=== PATIENT | female | born 1995 | race Caucasian/White ===

== ENCOUNTER 2017-06-06 16:08 | Emergency (ER) | payer SELFPAY ==
[~2017-06-06] VITALS: Ht 167.6 cm; Wt 65.0 kg
[2017-06-06 16:52] VITALS: BP 117/68
[2017-06-06] MEDS ORDERED: OLANZAPINE 10 MG/VIAL IM ONE (17:30)
[2017-06-06] MEDS ORDERED: LORAZEPAM 2MG/ML CPJ IM ONE (17:30)
[2017-06-06] MEDS ORDERED: DIPHENHYDRAMINE 50MG/ML VIAL IM ONE (17:30)
== END 2017-06-06 18:03 | disposition home or self-care (01) ==
LOC: ER 16:40
DX: R44.0 Auditory hallucinations (principal); R44.1 Visual hallucinations; K64.4 Residual hemorrhoidal skin tags
CPT/HCPCS: 99284

== ENCOUNTER 2017-07-10 22:49 | Emergency (ER) | payer MEDICAID ==
[~2017-07-10] VITALS: Ht 170.2 cm; Wt 68.0 kg
[2017-07-10] MEDS ORDERED: LORAZEPAM 2MG/ML CPJ IV ONE (23:45)
[2017-07-10] MEDS ORDERED: SODIUM CHLORIDE 0.9% 1,000 ML IV ONE (23:45)
[2017-07-11 00:07] LABS: BASOPHILS % 0.9 % (0.0-2.0); EOSINOPHILS % 1.1 % (0.0-5.0); HEMATOCRIT. 33.5 % (36.0-48.0); HEMOGLOBIN. 10.6 g/dL (12.0-16.0); LYMPHOCYTES % 30.9 % (20.0-50.0); MEAN CORPUSCULAR HEMOGLOBIN 23.3 pg (28.0-32.0); MEAN CORPUSCULAR VOLUME 73.3 fL (81.0-99.0); MEAN PLATELET VOLUME 8.3 fl (7.4-10.4); MONOCYTES % 7.5 % (2.0-8.0); NEUTROPHILS % 59.6 % (40.0-76.0); PLATELET 347 x1000/uL (130-400); RED BLOOD CELL COUNT 4.56 mill/uL (4.2-5.4); RED CELL DISTRIBUTION WIDTH 19.6 % (11.6-14.6)
[2017-07-11 00:18] LABS: CLARITY URINE CLOUDY (CLEAR); COLOR URINE YELLOW (YELLOW); GLUCOSE URINE NEGATIVE (NEGATIVE); KETONES URINE 1+ (NEGATIVE); LEUKOCYTE ESTERASE URINE 1+ (NEGATIVE); NITRITE URINE NEGATIVE (NEGATIVE); OCCULT BLOOD URINE NEGATIVE (NEGATIVE); PH URINE 5.5 (4.5-8.0); PROTEIN URINE NEGATIVE (NEGATIVE); UROBILINOGEN URINE 0.2 E.U./dL (0.2-1.0)
[2017-07-11 00:18] LABS: CHLORIDE 105 mEq/L (98-107)
[2017-07-11 00:23] LABS: CARBON DIOXIDE 22 mEq/L (21-32)
[2017-07-11 02:38] LABS: *BARBITURATES SCREEN URINE NEGATIVE (NEGATIVE); *BENZODIAZEPINES SCREEN URINE NEGATIVE (NEGATIVE); *COCAINE SCREEN URINE NEGATIVE (NEGATIVE); METHADONE URINE SCREEN NEGATIVE (NEGATIVE); OPIATES URINE SCREEN NEGATIVE (NEGATIVE); PHENCYCLIDINE URINE SCREEN NEGATIVE (NEGATIVE)
[2017-07-11 03:13] LABS: *AMPHETAMINES SCREEN URINE PRESUMTIVE POSITIVE (NEGATIVE); CANNABINOID URINE SCREEN PRESUMTIVE POSITIVE (NEGATIVE)
[2017-07-11 04:00] VITALS: BP 96/50
== END 2017-07-11 07:20 | disposition home or self-care (01) ==
LOC: ER 22:49
DX: F15.10 Other stimulant abuse, uncomplicated (principal); F19.10 Other psychoactive substance abuse, uncomplicated; F31.9 Bipolar disorder, unspecified
CPT/HCPCS: 36415; 80048; 80305; 81001; 81025; 85025; 96361; 96374; 99284; J2060; J7030; Z7610; 80307

== ENCOUNTER 2018-08-15 11:51 | Emergency (ER) | payer MEDICAID, MEDICARE ==
[~2018-08-15] VITALS: Ht 167.6 cm; Wt 81.9 kg
[2018-08-15] MEDS ORDERED: OLANZAPINE 10 MG/VIAL IM STA (12:12)
[2018-08-15 12:54] LABS: CLARITY URINE CLEAR (CLEAR); COLOR URINE YELLOW (YELLOW); KETONES URINE 1+ (NEGATIVE); LEUKOCYTE ESTERASE URINE TRACE (NEGATIVE); NITRITE URINE NEGATIVE (NEGATIVE); OCCULT BLOOD URINE 2+ (NEGATIVE); PH URINE 5.5 (4.5-8.0); PROTEIN URINE NEGATIVE (NEGATIVE); SPECIFIC GRAVITY URINE 1.025 (1.005-1.030); UROBILINOGEN URINE 0.2 E.U./dL (0.2-1.0)
[2018-08-15 12:57] LABS: EOSINOPHILS % 0.5 % (0.0-5.0); HEMATOCRIT. 38.8 % (36.0-48.0); HEMOGLOBIN. 13.4 g/dL (12.0-16.0); LYMPHOCYTES % 28.2 % (20.0-50.0); MEAN CORPUSCULAR VOLUME 89.9 fL (81.0-99.0); MEAN PLATELET VOLUME 8.2 fl (7.4-10.4); MONOCYTES % 6.7 % (2.0-8.0); NEUTROPHILS % 63.6 % (40.0-76.0); PLATELET 283 x1000/uL (130-400); RED BLOOD CELL COUNT 4.32 mill/uL (4.2-5.4); RED CELL DISTRIBUTION WIDTH 13.6 % (11.6-14.6)
[2018-08-15 13:06] LABS: CHLORIDE 108 mEq/L (98-107); ETHANOL BLOOD < 10 mg/dL
[2018-08-15 13:07] LABS: *BENZODIAZEPINES SCREEN URINE NEGATIVE (NEGATIVE); *COCAINE SCREEN URINE NEGATIVE (NEGATIVE); METHADONE URINE SCREEN NEGATIVE (NEGATIVE); OPIATES URINE SCREEN NEGATIVE (NEGATIVE)
[2018-08-15 13:08] LABS: *BARBITURATES SCREEN URINE NEGATIVE (NEGATIVE); PHENCYCLIDINE URINE SCREEN NEGATIVE (NEGATIVE)
[2018-08-15 13:09] LABS: HCG SCREEN NEGATIVE
[2018-08-15 13:12] LABS: *AMPHETAMINES SCREEN URINE PRESUMTIVE POSITIVE (NEGATIVE); CANNABINOID URINE SCREEN PRESUMTIVE POSITIVE (NEGATIVE)
[2018-08-16] MEDS ORDERED: TRAZODONE HCL 50MG TABLET PO STA (07:24)
[2018-08-16] MEDS ORDERED: ARIPIPRAZOLE 10MG TABLET PO ONE (07:30)
[2018-08-16 12:30] VITALS: BP 110/58
== END 2018-08-16 12:34 | disposition home or self-care (01) ==
LOC: ER 11:51
DX: F23 Brief psychotic disorder (principal); F31.9 Bipolar disorder, unspecified; F15.10 Other stimulant abuse, uncomplicated; F12.10 Cannabis abuse, uncomplicated; F16.10 Hallucinogen abuse, uncomplicated; R45.851 Suicidal ideations; F17.210 Nicotine dependence, cigarettes, uncomplicated; Z71.6 Tobacco abuse counseling; Z91.19 Patient's noncompliance with other medical treatment and regimen
CPT/HCPCS: 36415; 80053; 80305; 81003; 81025; 84703; 85025; 96372; 99284; 99406; G0482; J3490

== ENCOUNTER 2018-08-30 05:59 | Emergency (ER) | payer MEDICARE | END 2018-08-30 06:13 | disposition left against medical advice (07) | LOC: ER 05:59 | DX: Z53.21 Procedure and treatment not carried out due to patient leaving prior to being seen by health care provider (principal) ==

== ENCOUNTER 2018-09-17 01:13 | Emergency (ER) | payer MEDICARE ==
[~2018-09-17] VITALS: Ht 167.6 cm; Wt 68.0 kg
[2018-09-17 03:17] LABS: EOSINOPHILS % 0.8 % (0.0-5.0); HEMATOCRIT. 37.9 % (36.0-48.0); LYMPHOCYTES % 34.2 % (20.0-50.0); MEAN CORPUSCULAR HEMOGLOBIN 31.2 pg (28.0-32.0); MEAN CORPUSCULAR VOLUME 90.9 fL (81.0-99.0); MEAN PLATELET VOLUME 8.5 fl (7.4-10.4); MONOCYTES % 7.5 % (2.0-8.0); NEUTROPHILS % 56.5 % (40.0-76.0); PLATELET 294 x1000/uL (130-400); RED BLOOD CELL COUNT 4.17 mill/uL (4.2-5.4); RED CELL DISTRIBUTION WIDTH 13.4 % (11.6-14.6)
[2018-09-17 03:28] LABS: ETHANOL BLOOD < 10 mg/dL
[2018-09-17 03:34] LABS: CLARITY URINE CLOUDY (CLEAR); COLOR URINE YELLOW (YELLOW); KETONES URINE 1+ (NEGATIVE); LEUKOCYTE ESTERASE URINE NEGATIVE (NEGATIVE); NITRITE URINE NEGATIVE (NEGATIVE); OCCULT BLOOD URINE NEGATIVE (NEGATIVE); PROTEIN URINE NEGATIVE (NEGATIVE); SPECIFIC GRAVITY URINE 1.019 (1.005-1.030); UROBILINOGEN URINE 0.2 E.U./dL (0.2-1.0)
[2018-09-17 03:47] LABS: *BARBITURATES SCREEN URINE NEGATIVE (NEGATIVE); *BENZODIAZEPINES SCREEN URINE NEGATIVE (NEGATIVE)
[2018-09-17 03:48] LABS: *COCAINE SCREEN URINE NEGATIVE (NEGATIVE); CANNABINOID URINE SCREEN NEGATIVE (NEGATIVE); METHADONE URINE SCREEN NEGATIVE (NEGATIVE); OPIATES URINE SCREEN NEGATIVE (NEGATIVE); PHENCYCLIDINE URINE SCREEN NEGATIVE (NEGATIVE)
[2018-09-17 03:54] LABS: *AMPHETAMINES SCREEN URINE PRESUMTIVE POSITIVE (NEGATIVE)
[2018-09-17] MEDS ORDERED: HALOPERIDOL LACTATE 5MG/ML VIAL IM ONE (04:00)
[2018-09-17] MEDS ORDERED: LORAZEPAM 2MG/ML CPJ IM ONE (04:00)
[2018-09-17 04:04] LABS: CHLORIDE 106 mEq/L (98-107)
[2018-09-17 10:40] VITALS: BP 135/64
== END 2018-09-17 11:07 | disposition home or self-care (01) ==
LOC: ER 01:47
DX: R45.1 Restlessness and agitation (principal); F31.9 Bipolar disorder, unspecified; F20.9 Schizophrenia, unspecified; F17.200 Nicotine dependence, unspecified, uncomplicated; F15.10 Other stimulant abuse, uncomplicated
CPT/HCPCS: 36415; 80053; 80305; 80307; 80329; 81003; 85025; 96372; 99283; G0482; J1630; J2060

== ENCOUNTER 2018-09-21 18:15 | Emergency (ER) | payer MEDICARE ==
[~2018-09-21] VITALS: Ht 160 cm; Wt 56.0 kg
[2018-09-22] MEDS ORDERED: HALOPERIDOL LACTATE 5MG/ML VIAL IM STA (00:11)
[2018-09-22] MEDS ORDERED: LORAZEPAM 2MG/ML CPJ IM STA (00:11)
[2018-09-22 01:08] LABS: CLARITY URINE CLEAR (CLEAR); COLOR URINE DARK YELLOW (YELLOW); KETONES URINE 2+ (NEGATIVE); LEUKOCYTE ESTERASE URINE NEGATIVE (NEGATIVE); NITRITE URINE NEGATIVE (NEGATIVE); OCCULT BLOOD URINE NEGATIVE (NEGATIVE); PROTEIN URINE TRACE (NEGATIVE); SPECIFIC GRAVITY URINE 1.029 (1.005-1.030); UROBILINOGEN URINE 0.2 E.U./dL (0.2-1.0)
[2018-09-22 01:37] LABS: *BARBITURATES SCREEN URINE NEGATIVE (NEGATIVE); *BENZODIAZEPINES SCREEN URINE NEGATIVE (NEGATIVE)
[2018-09-22 01:38] LABS: *COCAINE SCREEN URINE NEGATIVE (NEGATIVE); CANNABINOID URINE SCREEN NEGATIVE (NEGATIVE); METHADONE URINE SCREEN NEGATIVE (NEGATIVE); OPIATES URINE SCREEN NEGATIVE (NEGATIVE); PHENCYCLIDINE URINE SCREEN NEGATIVE (NEGATIVE)
[2018-09-22 01:41] LABS: *AMPHETAMINES SCREEN URINE PRESUMTIVE POSITIVE (NEGATIVE)
[2018-09-22 01:50] LABS: BASOPHILS % 0.7 % (0.0-2.0); EOSINOPHILS % 1.2 % (0.0-5.0); HEMATOCRIT. 37.1 % (36.0-48.0); LYMPHOCYTES % 37.8 % (20.0-50.0); MEAN CORPUSCULAR VOLUME 88.8 fL (81.0-99.0); MEAN PLATELET VOLUME 8.4 fl (7.4-10.4); MONOCYTES % 9.9 % (2.0-8.0); NEUTROPHILS % 50.4 % (40.0-76.0); PLATELET 280 x1000/uL (130-400); RED BLOOD CELL COUNT 4.18 mill/uL (4.2-5.4); RED CELL DISTRIBUTION WIDTH 13.4 % (11.6-14.6)
[2018-09-22 01:58] LABS: CHLORIDE 105 mEq/L (98-107)
[2018-09-22 02:05] LABS: ETHANOL BLOOD < 10 mg/dL
[2018-09-22 12:54] VITALS: BP 114/57
== END 2018-09-22 13:15 | disposition home or self-care (01) ==
LOC: ER 18:15
DX: F15.10 Other stimulant abuse, uncomplicated (principal); F20.9 Schizophrenia, unspecified; F31.9 Bipolar disorder, unspecified
CPT/HCPCS: 36415; 80053; 80305; 80307; 80329; 81003; 81025; 85025; 96372; 99283; G0482; J1630; J2060

== ENCOUNTER 2018-10-21 23:07 | Emergency (ER) | payer MEDICARE ==
[~2018-10-21] VITALS: Ht 165.1 cm; Wt 54.0 kg
[2018-10-21] MEDS ORDERED: SODIUM CHLORIDE 0.9% 1,000 ML IV ONE (23:23)
[2018-10-21] MEDS ORDERED: LORAZEPAM 2MG/ML CPJ IV ONE (23:30)
[2018-10-21 23:42] LABS: BASOPHILS % 0.6 % (0.0-2.0); EOSINOPHILS % 0.7 % (0.0-5.0); HEMATOCRIT. 40.7 % (36.0-48.0); HEMOGLOBIN. 13.8 g/dL (12.0-16.0); MEAN CORPUSCULAR HEMOGLOBIN 30.8 pg (28.0-32.0); MEAN CORPUSCULAR VOLUME 90.9 fL (81.0-99.0); MEAN PLATELET VOLUME 7.9 fl (7.4-10.4); MONOCYTES % 8.5 % (2.0-8.0); NEUTROPHILS % 59.2 % (40.0-76.0); PLATELET 346 x1000/uL (130-400); RED BLOOD CELL COUNT 4.48 mill/uL (4.2-5.4); RED CELL DISTRIBUTION WIDTH 13.5 % (11.6-14.6)
[2018-10-21 23:50] LABS: CHLORIDE 105 mEq/L (98-107)
[2018-10-21 23:54] LABS: HCG SCREEN NEGATIVE
[2018-10-21 23:56] LABS: ETHANOL BLOOD < 10 mg/dL
[2018-10-22] MEDS ORDERED: LORAZEPAM 2MG/ML CPJ IV ONE (00:15)
[2018-10-22 00:22] LABS: CLARITY URINE CLOUDY (CLEAR); COLOR URINE YELLOW (YELLOW); KETONES URINE NEGATIVE (NEGATIVE); LEUKOCYTE ESTERASE URINE NEGATIVE (NEGATIVE); NITRITE URINE NEGATIVE (NEGATIVE); OCCULT BLOOD URINE NEGATIVE (NEGATIVE); PH URINE 6.5 (4.5-8.0); PROTEIN URINE NEGATIVE (NEGATIVE); SPECIFIC GRAVITY URINE 1.021 (1.005-1.030); UROBILINOGEN URINE 0.2 E.U./dL (0.2-1.0)
[2018-10-22 00:31] LABS: *BARBITURATES SCREEN URINE NEGATIVE (NEGATIVE); *BENZODIAZEPINES SCREEN URINE NEGATIVE (NEGATIVE)
[2018-10-22 00:32] LABS: *COCAINE SCREEN URINE NEGATIVE (NEGATIVE); CANNABINOID URINE SCREEN NEGATIVE (NEGATIVE); METHADONE URINE SCREEN NEGATIVE (NEGATIVE); OPIATES URINE SCREEN NEGATIVE (NEGATIVE); PHENCYCLIDINE URINE SCREEN NEGATIVE (NEGATIVE)
[2018-10-22 00:33] LABS: *AMPHETAMINES SCREEN URINE PRESUMTIVE POSITIVE (NEGATIVE)
[2018-10-22] MEDS ORDERED: SODIUM CHLORIDE 0.9% 1,000 ML IV ONE (03:57)
[2018-10-22 14:46] VITALS: BP 118/75
== END 2018-10-22 14:49 | disposition home or self-care (01) ==
LOC: EDUNIT# 23:07 → ER 23:07 → EDBD 23:07 → ER 10-22 14:49
DX: T43.621A Poisoning by amphetamines, accidental (unintentional), initial encounter (principal); G93.1 Anoxic brain damage, not elsewhere classified; Y92.89 Other specified places as the place of occurrence of the external cause
CPT/HCPCS: 36415; 70450; 80053; 80305; 80307; 80329; 81003; 81025; 84703; 85025; 96361; 96374; 96376; 99284; G0482; J2060; J7030; A4315

== ENCOUNTER 2018-10-24 12:32 | Emergency (ER) | payer MEDICARE ==
[~2018-10-24] VITALS: Ht 165.1 cm; Wt 65.0 kg
[2018-10-24 14:46] LABS: CLARITY URINE CLOUDY (CLEAR); COLOR URINE YELLOW (YELLOW); KETONES URINE TRACE (NEGATIVE); LEUKOCYTE ESTERASE URINE 1+ (NEGATIVE); NITRITE URINE POSITIVE (NEGATIVE); OCCULT BLOOD URINE 2+ (NEGATIVE); PROTEIN URINE NEGATIVE (NEGATIVE); SPECIFIC GRAVITY URINE 1.027 (1.005-1.030); UROBILINOGEN URINE 0.2 E.U./dL (0.2-1.0)
[2018-10-24] MEDS ORDERED: CEFTRIAXONE 1 G PREMIX 50 ML IV NR (15:22)
[2018-10-24] MEDS ORDERED: SULFAMETHOXAZOLE/TRIMETHOPRIM 800/160MG TABLET PO ONE (15:30)
[2018-10-24] MEDS ORDERED: ZIPRASIDONE MESYLATE 20MG/VIAL IM ONE (15:30)
[2018-10-24] MEDS ORDERED: LORAZEPAM 2MG/ML CPJ IM ONE (15:30)
[2018-10-24] MEDS ORDERED: DIPHENHYDRAMINE 50MG/ML VIAL IM ONE (15:30)
[2018-10-24 15:31] LABS: *BARBITURATES SCREEN URINE NEGATIVE (NEGATIVE)
[2018-10-24 15:32] LABS: BASOPHILS % 0.5 % (0.0-2.0); EOSINOPHILS % 0.4 % (0.0-5.0); HEMOGLOBIN. 12.6 g/dL (12.0-16.0); LYMPHOCYTES % 28.3 % (20.0-50.0); MEAN CORPUSCULAR HEMOGLOBIN 30.8 pg (28.0-32.0); MEAN CORPUSCULAR VOLUME 90.5 fL (81.0-99.0); MEAN PLATELET VOLUME 8.1 fl (7.4-10.4); NEUTROPHILS % 60.8 % (40.0-76.0); PLATELET 347 x1000/uL (130-400); RED BLOOD CELL COUNT 4.09 mill/uL (4.2-5.4); RED CELL DISTRIBUTION WIDTH 13.4 % (11.6-14.6)
[2018-10-24 15:32] LABS: *BENZODIAZEPINES SCREEN URINE NEGATIVE (NEGATIVE); *COCAINE SCREEN URINE NEGATIVE (NEGATIVE); METHADONE URINE SCREEN NEGATIVE (NEGATIVE)
[2018-10-24 15:33] LABS: OPIATES URINE SCREEN NEGATIVE (NEGATIVE); PHENCYCLIDINE URINE SCREEN NEGATIVE (NEGATIVE)
[2018-10-24 15:35] LABS: CHLORIDE 112 mEq/L (98-107)
[2018-10-24 15:35] LABS: *AMPHETAMINES SCREEN URINE PRESUMTIVE POSITIVE (NEGATIVE); CANNABINOID URINE SCREEN PRESUMTIVE POSITIVE (NEGATIVE)
[2018-10-24 15:39] LABS: ETHANOL BLOOD < 10 mg/dL
[2018-10-24 15:47] LABS: HCG SCREEN NEGATIVE
[2018-10-25 08:30] VITALS: BP 112/54
== END 2018-10-25 08:52 | disposition home or self-care (01) ==
LOC: ER 12:32
DX: F19.10 Other psychoactive substance abuse, uncomplicated (principal); F29 Unspecified psychosis not due to a substance or known physiological condition; F15.10 Other stimulant abuse, uncomplicated
CPT/HCPCS: 36415; 80053; 80305; 80307; 80329; 81003; 81025; 84703; 85025; 93005; 96372; 99284; G0482; J1200; J2060; J3486

== ENCOUNTER 2018-11-03 20:22 | Emergency (ER) | payer MEDICARE ==
[~2018-11-03] VITALS: Ht 160 cm; Wt 59.1 kg
[2018-11-03 23:28] LABS: CLARITY URINE CLEAR (CLEAR); COLOR URINE YELLOW (YELLOW); KETONES URINE TRACE (NEGATIVE); LEUKOCYTE ESTERASE URINE NEGATIVE (NEGATIVE); NITRITE URINE NEGATIVE (NEGATIVE); OCCULT BLOOD URINE NEGATIVE (NEGATIVE); PROTEIN URINE NEGATIVE (NEGATIVE); SPECIFIC GRAVITY URINE 1.025 (1.005-1.030); UROBILINOGEN URINE 0.2 E.U./dL (0.2-1.0)
[2018-11-03 23:33] LABS: BASOPHILS % 0.7 % (0.0-2.0); EOSINOPHILS % 1.1 % (0.0-5.0); HEMATOCRIT. 36.2 % (36.0-48.0); HEMOGLOBIN. 12.2 g/dL (12.0-16.0); LYMPHOCYTES % 39.9 % (20.0-50.0); MEAN CORPUSCULAR HEMOGLOBIN 30.8 pg (28.0-32.0); MEAN CORPUSCULAR VOLUME 90.9 fL (81.0-99.0); MEAN PLATELET VOLUME 8.2 fl (7.4-10.4); NEUTROPHILS % 48.3 % (40.0-76.0); PLATELET 302 x1000/uL (130-400); RED BLOOD CELL COUNT 3.98 mill/uL (4.2-5.4); RED CELL DISTRIBUTION WIDTH 13.4 % (11.6-14.6)
[2018-11-03 23:42] LABS: CHLORIDE 108 mEq/L (98-107)
[2018-11-03 23:46] LABS: *BARBITURATES SCREEN URINE NEGATIVE (NEGATIVE); *COCAINE SCREEN URINE NEGATIVE (NEGATIVE); METHADONE URINE SCREEN NEGATIVE (NEGATIVE); OPIATES URINE SCREEN NEGATIVE (NEGATIVE); PHENCYCLIDINE URINE SCREEN NEGATIVE (NEGATIVE)
[2018-11-03 23:47] LABS: *AMPHETAMINES SCREEN URINE PRESUMTIVE POSITIVE (NEGATIVE); CANNABINOID URINE SCREEN PRESUMTIVE POSITIVE (NEGATIVE)
[2018-11-03 23:49] LABS: ETHANOL BLOOD < 10 mg/dL
[2018-11-03 23:57] LABS: *BENZODIAZEPINES SCREEN URINE PRESUMTIVE POSITIVE (NEGATIVE)
[2018-11-04 01:39] VITALS: BP 132/45
== END 2018-11-04 01:53 | disposition home or self-care (01) ==
LOC: ER 20:33
DX: F15.10 Other stimulant abuse, uncomplicated (principal); F12.10 Cannabis abuse, uncomplicated; F16.10 Hallucinogen abuse, uncomplicated; F20.9 Schizophrenia, unspecified; F17.200 Nicotine dependence, unspecified, uncomplicated; R45.6 Violent behavior
CPT/HCPCS: 36415; 80053; 80305; 81003; 81025; 85025; 99283; G0482

== ENCOUNTER 2018-12-02 03:30 | Emergency (ER) | payer MEDICARE ==
[~2018-12-02] VITALS: Ht 162.6 cm; Wt 68.0 kg
[2018-12-02] MEDS ORDERED: LORAZEPAM 1MG TABLET PO ONE (04:30)
[2018-12-02] MEDS ORDERED: LORAZEPAM 2MG/ML CPJ IM ONE (04:30)
[2018-12-02 04:40] LABS: BASOPHILS % 0.6 % (0.0-2.0); EOSINOPHILS % 0.6 % (0.0-5.0); HEMATOCRIT. 39.7 % (36.0-48.0); HEMOGLOBIN. 13.4 g/dL (12.0-16.0); LYMPHOCYTES % 24.6 % (20.0-50.0); MEAN CORPUSCULAR HEMOGLOBIN 30.7 pg (28.0-32.0); MEAN CORPUSCULAR VOLUME 91.1 fL (81.0-99.0); MEAN PLATELET VOLUME 8.4 fl (7.4-10.4); MONOCYTES % 7.5 % (2.0-8.0); NEUTROPHILS % 66.7 % (40.0-76.0); PLATELET 339 x1000/uL (130-400); RED BLOOD CELL COUNT 4.36 mill/uL (4.2-5.4); RED CELL DISTRIBUTION WIDTH 13.2 % (11.6-14.6)
[2018-12-02 04:42] LABS: CHLORIDE 109 mEq/L (98-107)
[2018-12-02 04:47] LABS: ETHANOL BLOOD < 10 mg/dL
[2018-12-02 04:55] LABS: CLARITY URINE CLOUDY (CLEAR); COLOR URINE YELLOW (YELLOW); KETONES URINE TRACE (NEGATIVE); LEUKOCYTE ESTERASE URINE TRACE (NEGATIVE); NITRITE URINE NEGATIVE (NEGATIVE); OCCULT BLOOD URINE TRACE (NEGATIVE); PROTEIN URINE 3+ (NEGATIVE); SPECIFIC GRAVITY URINE 1.023 (1.005-1.030)
[2018-12-02 05:14] LABS: *BARBITURATES SCREEN URINE NEGATIVE (NEGATIVE); *BENZODIAZEPINES SCREEN URINE NEGATIVE (NEGATIVE); *COCAINE SCREEN URINE NEGATIVE (NEGATIVE); METHADONE URINE SCREEN NEGATIVE (NEGATIVE); OPIATES URINE SCREEN NEGATIVE (NEGATIVE); PHENCYCLIDINE URINE SCREEN NEGATIVE (NEGATIVE)
[2018-12-02 05:27] LABS: *AMPHETAMINES SCREEN URINE PRESUMTIVE POSITIVE (NEGATIVE); CANNABINOID URINE SCREEN PRESUMTIVE POSITIVE (NEGATIVE)
[2018-12-02] MEDS ORDERED: OLANZAPINE 10 MG/VIAL IM ONE (05:45)
[2018-12-02] MEDS ORDERED: CEPHALEXIN 250MG CAPSULE PO ONE ×2 (07:30→13:34)
[2018-12-03 13:54] VITALS: BP 114/68
== END 2018-12-03 13:59 | disposition home or self-care (01) ==
LOC: ER 03:30
DX: F15.129 Other stimulant abuse with intoxication, unspecified (principal); F20.9 Schizophrenia, unspecified; Z91.14 Patient's other noncompliance with medication regimen; N39.0 Urinary tract infection, site not specified; Z71.51 Drug abuse counseling and surveillance of drug abuser
CPT/HCPCS: 36415; 80053; 80305; 80307; 80329; 81003; 81025; 85025; 87186; 96372; 99283; J2060; J3490; Z7610

== ENCOUNTER 2018-12-05 22:48 | Emergency (ER) | payer MEDICARE ==
[~2018-12-05] VITALS: Ht 167.6 cm; Wt 68.0 kg
[2018-12-05] MEDS ORDERED: ONDANSETRON 4MG ODT PO STA (23:16)
[2018-12-05 23:34] LABS: BASOPHILS % 0.3 % (0.0-2.0); EOSINOPHILS % 0.3 % (0.0-5.0); HEMATOCRIT. 40.7 % (36.0-48.0); HEMOGLOBIN. 13.8 g/dL (12.0-16.0); LYMPHOCYTES % 16.3 % (20.0-50.0); MEAN CORPUSCULAR HEMOGLOBIN 30.8 pg (28.0-32.0); MEAN CORPUSCULAR VOLUME 90.9 fL (81.0-99.0); MEAN PLATELET VOLUME 8.1 fl (7.4-10.4); MONOCYTES % 6.6 % (2.0-8.0); NEUTROPHILS % 76.5 % (40.0-76.0); PLATELET 277 x1000/uL (130-400); RED BLOOD CELL COUNT 4.48 mill/uL (4.2-5.4); RED CELL DISTRIBUTION WIDTH 13.4 % (11.6-14.6)
[2018-12-05 23:38] LABS: CHLORIDE 106 mEq/L (98-107)
[2018-12-06 00:15] LABS: CLARITY URINE CLOUDY (CLEAR); COLOR URINE DARK YELLOW (YELLOW); KETONES URINE 1+ (NEGATIVE); LEUKOCYTE ESTERASE URINE NEGATIVE (NEGATIVE); NITRITE URINE NEGATIVE (NEGATIVE); OCCULT BLOOD URINE NEGATIVE (NEGATIVE); PH URINE 6.5 (4.5-8.0); PROTEIN URINE 2+ (NEGATIVE); SPECIFIC GRAVITY URINE 1.025 (1.005-1.030)
[2018-12-06 01:20] VITALS: BP 121/69
== END 2018-12-06 01:30 | disposition home or self-care (01) ==
LOC: ER 22:48
DX: R11.2 Nausea with vomiting, unspecified (principal); R42 Dizziness and giddiness; F20.9 Schizophrenia, unspecified; F15.10 Other stimulant abuse, uncomplicated
CPT/HCPCS: 36415; 80053; 81003; 81025; 85025; 99283; Q0162

== ENCOUNTER 2018-12-16 09:32 | Emergency (ER) | payer MEDICARE ==
[~2018-12-16] VITALS: Ht 167.6 cm; Wt 65.0 kg
[2018-12-16] MEDS ORDERED: SODIUM CHLORIDE 0.9% 1,000 ML IV ONE ×2 (09:44→11:33)
[2018-12-16] MEDS ORDERED: HALOPERIDOL LACTATE 5MG/ML VIAL IM ONE (09:45)
[2018-12-16] MEDS ORDERED: LORAZEPAM 2MG/ML CPJ IM ONE (09:45)
[2018-12-16 10:40] LABS: CLARITY URINE CLEAR (CLEAR); COLOR URINE YELLOW (YELLOW); KETONES URINE NEGATIVE (NEGATIVE); LEUKOCYTE ESTERASE URINE NEGATIVE (NEGATIVE); NITRITE URINE NEGATIVE (NEGATIVE); OCCULT BLOOD URINE NEGATIVE (NEGATIVE); PH URINE 5.5 (4.5-8.0); PROTEIN URINE NEGATIVE (NEGATIVE); SPECIFIC GRAVITY URINE 1.005 (1.005-1.030); UROBILINOGEN URINE 0.2 E.U./dL (0.2-1.0)
[2018-12-16 10:41] LABS: BASOPHILS % 0.5 % (0.0-2.0); EOSINOPHILS % 0.2 % (0.0-5.0); HEMATOCRIT. 41.7 % (36.0-48.0); LYMPHOCYTES % 26.4 % (20.0-50.0); MEAN CORPUSCULAR HEMOGLOBIN 30.9 pg (28.0-32.0); MEAN PLATELET VOLUME 8.4 fl (7.4-10.4); MONOCYTES % 6.8 % (2.0-8.0); NEUTROPHILS % 66.1 % (40.0-76.0); PLATELET 396 x1000/uL (130-400); RED BLOOD CELL COUNT 4.53 mill/uL (4.2-5.4); RED CELL DISTRIBUTION WIDTH 13.2 % (11.6-14.6)
[2018-12-16 10:45] LABS: CHLORIDE 108 mEq/L (98-107)
[2018-12-16 10:55] LABS: ETHANOL BLOOD < 10 mg/dL
[2018-12-16 10:56] LABS: CREATINE KINASE 218 IU/L (26-192)
[2018-12-16 10:59] LABS: HCG SCREEN NEGATIVE
[2018-12-16 11:13] LABS: *BARBITURATES SCREEN URINE NEGATIVE (NEGATIVE); *BENZODIAZEPINES SCREEN URINE NEGATIVE (NEGATIVE); *COCAINE SCREEN URINE NEGATIVE (NEGATIVE); METHADONE URINE SCREEN NEGATIVE (NEGATIVE); OPIATES URINE SCREEN NEGATIVE (NEGATIVE)
[2018-12-16 11:14] LABS: CANNABINOID URINE SCREEN NEGATIVE (NEGATIVE); PHENCYCLIDINE URINE SCREEN NEGATIVE (NEGATIVE)
[2018-12-16 11:42] LABS: *AMPHETAMINES SCREEN URINE PRESUMTIVE POSITIVE (NEGATIVE)
[2018-12-17 05:57] VITALS: BP 103/74
== END 2018-12-17 06:11 | disposition home or self-care (01) ==
LOC: ER 10:12
DX: F15.188 Other stimulant abuse with other stimulant-induced disorder (principal); F16.188 Hallucinogen abuse with other hallucinogen-induced disorder; R03.0 Elevated blood-pressure reading, without diagnosis of hypertension; R45.1 Restlessness and agitation; Z78.1 Physical restraint status
CPT/HCPCS: 36415; 80053; 80305; 81003; 81025; 82550; 82962; 84703; 85025; 87186; 96360; 96361; 96372; 99283; J1630; J2060; J7030

== ENCOUNTER 2019-01-03 22:50 | Emergency (ER) | payer MEDICARE ==
[~2019-01-03] VITALS: Ht 170.2 cm; Wt 72.0 kg
[2019-01-04 00:50] VITALS: BP 114/80
== END 2019-01-04 01:26 | disposition left against medical advice (07) ==
LOC: ER 23:00
DX: R11.2 Nausea with vomiting, unspecified (principal); Z53.21 Procedure and treatment not carried out due to patient leaving prior to being seen by health care provider

== ENCOUNTER 2019-03-31 02:49 | Emergency (ER) | payer MEDICARE ==
[~2019-03-31] VITALS: Ht 167.6 cm; Wt 82.0 kg
[2019-03-31] MEDS ORDERED: IBUPROFEN 600MG TABLET PO ONE (04:00)
[2019-03-31] MEDS ORDERED: TRAMADOL 50MG TABLET PO ONE (04:00)
[2019-03-31] MEDS ORDERED: BACITRACIN 15GM TUBE TOP ONE (07:45)
[2019-03-31 08:10] VITALS: BP 102/51
== END 2019-03-31 08:36 | disposition home or self-care (01) ==
LOC: ER 02:49
DX: S90.01XA Contusion of right ankle, initial encounter (principal); S70.211A Abrasion, right hip, initial encounter; S70.212A Abrasion, left hip, initial encounter; F17.200 Nicotine dependence, unspecified, uncomplicated; V03.09XA Pedestrian with other conveyance injured in collision with car, pick-up truck or van in nontraffic accident, initial encounter; Y93.89 Activity, other specified; Y92.89 Other specified places as the place of occurrence of the external cause; Y99.8 Other external cause status
CPT/HCPCS: 73521; 73610; 81025; 99284; A4217; Z7610

== ENCOUNTER 2019-08-03 01:26 | Emergency (ER) | payer MEDICARE | END 2019-08-03 02:27 | disposition left against medical advice (07) | LOC: ER 01:26 | DX: Z53.21 Procedure and treatment not carried out due to patient leaving prior to being seen by health care provider (principal) ==

== ENCOUNTER 2020-02-10 03:22 | Emergency (ER) | payer MEDICARE ==
[~2020-02-10] VITALS: Ht 162.6 cm; Wt 75.0 kg
[2020-02-10 04:21] LABS: CHLORIDE 104 mEq/L (98-107)
[2020-02-10 04:24] LABS: ETHANOL BLOOD < 10 mg/dL
[2020-02-10 04:41] LABS: BASOPHILS % 0.7 % (0.0-2.0); EOSINOPHILS % 0.6 % (0.0-5.0); HEMATOCRIT. 39.8 % (36.0-48.0); HEMOGLOBIN. 13.8 g/dL (12.0-16.0); LYMPHOCYTES % 21.1 % (20.0-50.0); MEAN CORPUSCULAR HEMOGLOBIN 32.4 pg (28.0-32.0); MEAN CORPUSCULAR VOLUME 93.6 fL (81.0-99.0); MEAN PLATELET VOLUME 7.8 fl (7.4-10.4); MONOCYTES % 6.2 % (2.0-8.0); NEUTROPHILS % 71.4 % (40.0-76.0); PLATELET 341 x1000/uL (130-400); RED BLOOD CELL COUNT 4.26 mill/uL (4.2-5.4); RED CELL DISTRIBUTION WIDTH 13.6 % (11.6-14.6)
[2020-02-10 11:30] LABS: CLARITY URINE CLEAR (CLEAR); COLOR URINE YELLOW (YELLOW); KETONES URINE NEGATIVE (NEGATIVE); LEUKOCYTE ESTERASE URINE 1+ (NEGATIVE); NITRITE URINE NEGATIVE (NEGATIVE); OCCULT BLOOD URINE NEGATIVE (NEGATIVE); PH URINE 6.5 (4.5-8.0); PROTEIN URINE NEGATIVE (NEGATIVE); SPECIFIC GRAVITY URINE 1.018 (1.005-1.030); UROBILINOGEN URINE 0.2 E.U./dL (0.2-1.0)
[2020-02-10 12:10] LABS: *BARBITURATES SCREEN URINE NEGATIVE (NEGATIVE); *BENZODIAZEPINES SCREEN URINE NEGATIVE (NEGATIVE); *COCAINE SCREEN URINE NEGATIVE (NEGATIVE); CANNABINOID URINE SCREEN NEGATIVE (NEGATIVE); METHADONE URINE SCREEN NEGATIVE (NEGATIVE); OPIATES URINE SCREEN NEGATIVE (NEGATIVE); PHENCYCLIDINE URINE SCREEN NEGATIVE (NEGATIVE)
[2020-02-10 12:27] LABS: *AMPHETAMINES SCREEN URINE PRESUMTIVE POSITIVE (NEGATIVE)
[2020-02-10 18:50] VITALS: BP 127/74
[2020-02-10] MEDS ORDERED: NITROFURANTOIN 100MG M/M CAPSULE PO SCH (21:00)
== END 2020-02-10 18:50 | disposition home or self-care (01) ==
LOC: ER 03:22
DX: F23 Brief psychotic disorder (principal); F15.10 Other stimulant abuse, uncomplicated; N30.00 Acute cystitis without hematuria; R03.0 Elevated blood-pressure reading, without diagnosis of hypertension
CPT/HCPCS: 36415; 80053; 80305; 80320; 81003; 81025; 85025; 99285; G0480

== ENCOUNTER 2020-09-10 06:11 | Emergency (ER) | payer MEDICAID, MEDICARE ==
[~2020-09-10] VITALS: Ht 165.1 cm; Wt 62.0 kg
[2020-09-10] MEDS ORDERED: DIPHENHYDRAMINE 50MG/ML VIAL IM STA (06:45)
[2020-09-10] MEDS ORDERED: LORAZEPAM 2MG/ML CPJ IM STA (06:45)
[2020-09-10 07:35] LABS: BASOPHILS % 0.5 % (0.0-2.0); EOSINOPHILS % 2.8 % (0.0-5.0); HEMATOCRIT. 40.1 % (36.0-48.0); HEMOGLOBIN. 13.6 g/dL (12.0-16.0); LYMPHOCYTES % 34.9 % (20.0-50.0); MEAN CORPUSCULAR HEMOGLOBIN 31.3 pg (28.0-32.0); MEAN PLATELET VOLUME 7.9 fl (7.4-10.4); MONOCYTES % 7.3 % (2.0-8.0); NEUTROPHILS % 54.5 % (40.0-76.0); PLATELET 332 x1000/uL (130-400); RED BLOOD CELL COUNT 4.36 mill/uL (4.2-5.4); RED CELL DISTRIBUTION WIDTH 13.1 % (11.6-14.6)
[2020-09-10 07:41] LABS: CHLORIDE 105 mEq/L (98-107)
[2020-09-10 07:46] LABS: ETHANOL BLOOD < 10 mg/dL
[2020-09-10 08:02] LABS: HCG SCREEN NEGATIVE
[2020-09-10 10:04] LABS: CLARITY URINE CLEAR (CLEAR); COLOR URINE YELLOW (YELLOW); KETONES URINE NEGATIVE (NEGATIVE); LEUKOCYTE ESTERASE URINE NEGATIVE (NEGATIVE); NITRITE URINE NEGATIVE (NEGATIVE); OCCULT BLOOD URINE NEGATIVE (NEGATIVE); PH URINE 6.5 (4.5-8.0); PROTEIN URINE NEGATIVE (NEGATIVE); SPECIFIC GRAVITY URINE 1.023 (1.005-1.030); UROBILINOGEN URINE 0.2 E.U./dL (0.2-1.0)
[2020-09-10 10:47] LABS: *BARBITURATES SCREEN URINE NEGATIVE (NEGATIVE); *BENZODIAZEPINES SCREEN URINE NEGATIVE (NEGATIVE); *COCAINE SCREEN URINE NEGATIVE (NEGATIVE); METHADONE URINE SCREEN NEGATIVE (NEGATIVE); OPIATES URINE SCREEN NEGATIVE (NEGATIVE)
[2020-09-10 10:48] LABS: CANNABINOID URINE SCREEN NEGATIVE (NEGATIVE); PHENCYCLIDINE URINE SCREEN NEGATIVE (NEGATIVE)
[2020-09-10 10:49] LABS: *AMPHETAMINES SCREEN URINE PRESUMTIVE POSITIVE (NEGATIVE)
[2020-09-10 16:05] VITALS: BP 135/70
== END 2020-09-10 16:06 | disposition home or self-care (01) ==
LOC: ER 06:11
DX: F15.10 Other stimulant abuse, uncomplicated (principal); R44.0 Auditory hallucinations
CPT/HCPCS: 36415; 71045; 80053; 80305; 80320; 81003; 84703; 85025; 87426; 93005; 96372; 99285; J1200; J2060; G0480

== ENCOUNTER 2022-02-11 02:37 | Emergency (ER) | payer MEDICAID ==
[~2022-02-11] VITALS: Ht 172.7 cm; Wt 79.0 kg
[2022-02-11 02:39] VITALS: BP 112/62
== END 2022-02-11 06:29 | disposition home or self-care (01) ==
LOC: ER 02:37
DX: F15.10 Other stimulant abuse, uncomplicated (principal)
CPT/HCPCS: 99283

== ENCOUNTER 2024-03-10 03:45 | Emergency (ER) | payer MEDICAID ==
[~2024-03-10] VITALS: Ht 167.6 cm; Wt 78.0 kg
[2024-03-10] MEDS: DIPHENHYDRAMINE 50MG/ML VIAL IM STA (04:26)
[2024-03-10] MEDS: HALOPERIDOL LACTATE 5MG/ML VIAL IM STA (04:26)
[2024-03-10] MEDS: MIDAZOLAM HCL 2 MG/2 ML VIAL IM ONE (04:56)
[2024-03-10 08:18] VITALS: O2SAT 98
[2024-03-10 08:34] LABS: BASOPHILS % 0.5 % (0.0-2.0); EOSINOPHILS % 2.5 % (0.0-5.0); HEMATOCRIT. 36.2 % (36.0-48.0); HEMOGLOBIN. 12.2 g/dL (12.0-16.0); LYMPHOCYTES % 38.6 % (20.0-50.0); MEAN CORPUSCULAR HEMOGLOBIN 31.3 pg (28.0-32.0); MEAN CORPUSCULAR HGB CONC 33.7 g/dL (31.0-37.0); MEAN PLATELET VOLUME 7.7 fl (7.4-10.4); MONOCYTES % 8.4 % (2.0-8.0); PLATELET 353 x1000/uL (130-400); RED BLOOD CELL COUNT 3.89 mill/uL (4.2-5.4); RED CELL DISTRIBUTION WIDTH 14.4 % (11.6-14.6); WHITE BLOOD COUNT 6.7 x1000/uL (4.5-11.0)
[2024-03-10 08:47] LABS: CHLORIDE 110 mEq/L (98-107); POTASSIUM 3.8 mEq/L (3.5-5.1); SODIUM 139 mEq/L (136-145)
[2024-03-10 08:48] LABS: CARBON DIOXIDE 23 mEq/L (21-32)
[2024-03-10 08:52] LABS: HCG SCREEN NEGATIVE
[2024-03-10 08:53] LABS: CREATININE 0.7 mg/dL (0.6-1.0); GLUCOSE 88 mg/dL (70-105); UREA NITROGEN BLOOD 10 mg/dL (9-23)
[2024-03-10 08:54] LABS: ETHANOL BLOOD < 10 mg/dL (<10)
[2024-03-10 08:55] LABS: ACETAMINOPHEN < 2 ug/mL (10-30)
[2024-03-10 15:56] LABS: CLARITY URINE CLOUDY (CLEAR); COLOR URINE YELLOW (YELLOW); GLUCOSE URINE NEGATIVE (NEGATIVE); KETONES URINE NEGATIVE (NEGATIVE); LEUKOCYTE ESTERASE URINE NEGATIVE (NEGATIVE); NITRITE URINE NEGATIVE (NEGATIVE); OCCULT BLOOD URINE NEGATIVE (NEGATIVE); PROTEIN URINE NEGATIVE (NEGATIVE); SPECIFIC GRAVITY URINE 1.024 (1.005-1.030); UROBILINOGEN URINE 0.2 E.U./dL (0.2-1.0)
[2024-03-10 16:06] LABS: *AMPHETAMINES SCREEN URINE PRESUMPTIVE POSITIVE (NEGATIVE); *BARBITURATES SCREEN URINE NEGATIVE (NEGATIVE); *BENZODIAZEPINES SCREEN URINE PRESUMPTIVE POSITIVE (NEGATIVE)
[2024-03-10 16:07] LABS: *COCAINE SCREEN URINE NEGATIVE (NEGATIVE); CANNABINOID URINE SCREEN NEGATIVE (NEGATIVE); ECSTASY MDMA SCREEN URINE CONF.TEST INDICATED (NEGATIVE); METHADONE URINE SCREEN NEGATIVE (NEGATIVE); OPIATES URINE SCREEN NEGATIVE (NEGATIVE); PHENCYCLIDINE URINE SCREEN NEGATIVE (NEGATIVE)
[2024-03-10 16:09] LABS: BACTERIA URINE 2+; RBC URINE 0-2 /hpf (0-2); SQUAMOUS EPITHELIAL CELL URINE 1+ /lpf (RARE/1+); WBC URINE 0-2 /hpf (0-2)
[2024-03-10 16:10] LABS: AMORPHOUS SEDIMENT URINE 1+ /lpf; MUCUS URINE 2+ /lpf (< = 2+)
[2024-03-10] MEDS: ZIPRASIDONE MESYLATE 20MG/VIAL IM ONE (16:15)
[2024-03-11] MEDS: HALOPERIDOL LACTATE 5MG/ML VIAL IM ONE (05:51)
[2024-03-11] MEDS: ARIPIPRAZOLE 5MG TABLET PO SCH (09:41)
[2024-03-11] MEDS: TRAZODONE HCL 50MG TABLET PO SCH (21:00)
[2024-03-12 12:00] VITALS: BP 110/70; PULSE 68; RESP 14; TEMP 98.8
== END 2024-03-12 13:30 | disposition home or self-care (01) ==
LOC: ER 03:45
DX: F15.10 Other stimulant abuse, uncomplicated (principal); Z20.822 Contact with and (suspected) exposure to COVID-19
CPT/HCPCS: 80305; 80048; 81003; 81025; 80307; 80329; 80320; 84703; 85025; 36415; 96372; 99285; 87426; J1200; J1630 ×2; J2250; J3486; Z7610 ×2; G0480

== ENCOUNTER 2025-01-26 10:40 | Emergency (ER) | payer OTHER ==
[~2025-01-26] VITALS: Ht 167.6 cm; Wt 80.0 kg
[2025-01-26 10:44] VITALS: O2SAT 99
[2025-01-26] MEDS ORDERED: CEFTRIAXONE SODIUM 500MG VIAL IM ONE (11:00)
[2025-01-26] MEDS ORDERED: LIDOCAINE HCL 1% 20ML VIAL INFIL ONE (11:00)
[2025-01-26] MEDS: LIDOCAINE HCL 1% 20ML VIAL INFIL NR (12:46)
[2025-01-26] MEDS: CEFTRIAXONE SODIUM 500MG VIAL IM NR (12:46)
[2025-01-26 14:37] LABS: *AMPHETAMINES SCREEN URINE PRESUMPTIVE POSITIVE (NEGATIVE); *BARBITURATES SCREEN URINE NEGATIVE (NEGATIVE); *BENZODIAZEPINES SCREEN URINE NEGATIVE (NEGATIVE); *COCAINE SCREEN URINE NEGATIVE (NEGATIVE); CANNABINOID URINE SCREEN NEGATIVE (NEGATIVE); ECSTASY MDMA SCREEN URINE CONF.TEST INDICATED (NEGATIVE); METHADONE URINE SCREEN NEGATIVE (NEGATIVE); OPIATES URINE SCREEN NEGATIVE (NEGATIVE); PHENCYCLIDINE URINE SCREEN NEGATIVE (NEGATIVE)
[2025-01-26] MEDS ORDERED: DOXY100C5 MT (14:41)
[2025-01-26 15:10] VITALS: BP 122/84; PULSE 92; RESP 16; TEMP 37.2; O2SAT 100
[2025-01-29 05:19] LABS: CHLAMYDIA TRACHOMATIS NAA Negative (Negative); NEISSERIA GONORRHOEAE NAA Negative (Negative)
== END 2025-01-26 15:11 | disposition home or self-care (01) ==
LOC: ER 10:40
DX: Z11.3 Encounter for screening for infections with a predominantly sexual mode of transmission (principal); F31.9 Bipolar disorder, unspecified; F20.9 Schizophrenia, unspecified; F15.90 Other stimulant use, unspecified, uncomplicated; Z79.2 Long term (current) use of antibiotics; Z79.899 Other long term (current) drug therapy
CPT/HCPCS: 99283; 87491; 87591; 80305; 81025; 96372; J0696; J3490

== ENCOUNTER 2025-08-22 21:24 | Emergency (ER) | payer OTHER ==
[~2025-08-22] VITALS: Ht 165.1 cm; Wt 73.0 kg
[~2025-08-22 21:24] MED LIST: DOXY100C5 MT
[2025-08-22 21:33] VITALS: O2SAT 100
[2025-08-22] MEDS ORDERED: ARIP20TA62 PO (21:41)
[2025-08-22] MEDS ORDERED: BUSP10TA3 PO (21:41)
[2025-08-22] MEDS ORDERED: TRAZ-252 PO (21:41)
[2025-08-22] MEDS: LORAZEPAM 1MG TABLET PO ONE (22:00)
[2025-08-22] MEDS: SODIUM CHLORIDE 0.9% 1,000 ML IV ONE (22:20)
[2025-08-22 22:24] LABS: *AMPHETAMINES SCREEN URINE PRESUMPTIVE POSITIVE (NEGATIVE); *BARBITURATES SCREEN URINE NEGATIVE (NEGATIVE); *BENZODIAZEPINES SCREEN URINE NEGATIVE (NEGATIVE); *COCAINE SCREEN URINE NEGATIVE (NEGATIVE); CANNABINOID URINE SCREEN NEGATIVE (NEGATIVE); ECSTASY MDMA SCREEN URINE CONF.TEST INDICATED (NEGATIVE); METHADONE URINE SCREEN NEGATIVE (NEGATIVE); OPIATES URINE SCREEN NEGATIVE (NEGATIVE); PHENCYCLIDINE URINE SCREEN NEGATIVE (NEGATIVE)
[2025-08-22 22:47] LABS: BASOPHILS % 0.3 % (0.0-2.0); EOSINOPHILS % 0.0 % (0.0-5.0); HEMATOCRIT. 39.8 % (36.0-48.0); HEMOGLOBIN. 13.4 g/dL (12.0-16.0); LYMPHOCYTES % 11.3 % (20.0-50.0); MEAN PLATELET VOLUME 8.6 fl (7.4-10.4); MONOCYTES % 6.4 % (2.0-8.0); NEUTROPHILS % 82.0 % (40.0-76.0); PLATELET 273 x1000/uL (130-400); RED BLOOD CELL COUNT 4.31 mill/uL (4.2-5.4); RED CELL DISTRIBUTION WIDTH 12.4 % (11.6-14.6)
[2025-08-22 23:06] LABS: CREATININE 0.8 mg/dL (0.6-1.0); UREA NITROGEN BLOOD 14 mg/dL (9-23)
[2025-08-22 23:08] LABS: ASPARTATE AMINOTRANSFERASE 21 IU/L (<34); BILIRUBIN DIRECT < 0.1 mg/dL (<=3.0); BILIRUBIN TOTAL 0.3 mg/dL (0.1-1.0); PROTEIN TOTAL 7.8 g/dL (6.0-8.3)
[2025-08-22 23:23] LABS: HCG SCREEN NEGATIVE
[2025-08-22 23:33] LABS: ETHANOL BLOOD < 10 mg/dL (<10); TROPONIN I HIGH SENSITIVITY 30 ng/L (3.0-34)
[2025-08-22] MEDS: POTASSIUM CHLORIDE 20MEQ TABLET SR PO ONE (23:44)
[2025-08-22] MEDS: MAGNESIUM 2 G PREMIX 50 ML IV ONE (23:44)
[2025-08-23] MEDS: LORAZEPAM 1MG TABLET PO ONE (00:15)
[2025-08-23] MEDS: LORAZEPAM 1MG TABLET PO NR (05:45)
[2025-08-23] MEDS: OLANZAPINE 5MG TABLET ODT PO SCH (10:34)
[2025-08-23 14:11] VITALS: BP 95/55; PULSE 78; RESP 16; TEMP 36.7; O2SAT 100
== END 2025-08-23 14:15 ==
LOC: ER 21:24
DX: R44.0 Auditory hallucinations (principal); F15.10 Other stimulant abuse, uncomplicated; F41.9 Anxiety disorder, unspecified; F31.9 Bipolar disorder, unspecified; E87.6 Hypokalemia; E83.42 Hypomagnesemia; Z79.899 Other long term (current) drug therapy; Z20.822 Contact with and (suspected) exposure to COVID-19
CPT/HCPCS: 80076; 80305; 80048; 80307; 80329; 80320; 84703; 83735; 85025; 84484; 36415; 93005; 96361; 96365; 96366; 99285; 87426; J3475; J7030; G0480